=== PATIENT | female | born 1990 | race Caucasian/White ===

== ENCOUNTER 2017-09-18 18:34 | Emergency (ER) | payer OTHER ==
[~2017-09-18] VITALS: Ht 167.6 cm; Wt 131.1 kg
[2017-09-18] MEDS ORDERED: TOBRADEX EYE DRO5 ML OPHTHALMIC (19:26)
[2017-09-18 19:57] VITALS: BP 135/87
== END 2017-09-18 19:57 | disposition home or self-care (01) ==
LOC: ER 18:34
DX: S05.01XA Injury of conjunctiva and corneal abrasion without foreign body, right eye, initial encounter (principal); E03.9 Hypothyroidism, unspecified; F32.9 Major depressive disorder, single episode, unspecified; Z90.49 Acquired absence of other specified parts of digestive tract; X58.XXXA Exposure to other specified factors, initial encounter; Y93.89 Activity, other specified; Y92.89 Other specified places as the place of occurrence of the external cause; Y99.8 Other external cause status

== ENCOUNTER 2017-09-25 23:05 | Emergency (ER) | payer OTHER ==
[~2017-09-25] VITALS: Ht 167.6 cm; Wt 129.3 kg
[~2017-09-25 23:05] MED LIST: TOBRADEX EYE DRO5 ML OPHTHALMIC
[2017-09-25 23:32] VITALS: BP 119/67
[2017-09-25] MEDS ORDERED: CYMBALTA20 MG PO (23:35)
[2017-09-25] MEDS ORDERED: GLUCOPHAGE XR500 MG PO (23:36)
[2017-09-25] MEDS ORDERED: ZOFRAN ODT4 MG PO (23:59)
[2017-09-25] MEDS ORDERED: HYDROCODONE-AP1 EAC6 PO (23:59)
== END 2017-09-26 00:05 | disposition home or self-care (01) ==
LOC: ER 23:05
DX: S92.911A Unspecified fracture of right toe(s), initial encounter for closed fracture (principal); F32.9 Major depressive disorder, single episode, unspecified; E03.9 Hypothyroidism, unspecified; Z90.49 Acquired absence of other specified parts of digestive tract; Z88.8 Allergy status to other drugs, medicaments and biological substances; X58.XXXA Exposure to other specified factors, initial encounter; Y93.89 Activity, other specified; Y92.89 Other specified places as the place of occurrence of the external cause; Y99.8 Other external cause status

== ENCOUNTER 2017-10-14 23:22 | Emergency (ER) | payer OTHER ==
[~2017-10-14] VITALS: Ht 167.6 cm; Wt 129.3 kg
[~2017-10-14 23:22] MED LIST changes: +CYMBALTA20 MG PO; +GLUCOPHAGE XR500 MG PO; +HYDROCODONE-AP1 EAC6 PO; +ZOFRAN ODT4 MG PO
[2017-10-15] MEDS ORDERED: VITAMIN D1000 UNI2 PO (00:03)
[2017-10-15] MEDS ORDERED: CELEXA40 MG PO (00:04)
[2017-10-15] MEDS ORDERED: UNICOMPLEX M TA1 TA1 PO (00:04)
[2017-10-15 00:58] VITALS: BP 120/82
== END 2017-10-15 00:58 | disposition home or self-care (01) ==
LOC: ER 23:22
DX: S92.514D Nondisplaced fracture of proximal phalanx of right lesser toe(s), subsequent encounter for fracture with routine healing (principal); E03.9 Hypothyroidism, unspecified; F32.9 Major depressive disorder, single episode, unspecified; E78.00 Pure hypercholesterolemia, unspecified; Z90.89 Acquired absence of other organs; Z88.8 Allergy status to other drugs, medicaments and biological substances; X58.XXXD Exposure to other specified factors, subsequent encounter